=== PATIENT | female | born 1995 | race Caucasian/White ===

== ENCOUNTER 2018-08-20 02:11 | Observation (INO) ==
[2018-08-20] MEDS ORDERED: ONDANSETRON 4 MG/2 ML VIAL IV STA (02:50)
[2018-08-20] MEDS ORDERED: MORPHINE 4 MG/1 ML VIAL IV STA ×2 (02:50→04:18)
[2018-08-20 03:48] LABS: Albumin 4.7 G/DL (3.4-5.0); Bilirubin,Total 0.7 MG/DL (0.2-1.0); Calcium 9.2 MG/DL (8.5-10.1); Osmolality,Calculated 274.5 MOS/KG (273-304); Total Protein 8.2 G/DL (6.4-8.3)
[2018-08-20 04:16] LABS: Basophils % 0.4 % (0.0-0.8); Eosinophils # 0.1 10*3/uL (0.0-0.87); Eosinophils % 0.9 % (0.00-10.9); Hematocrit 35.4 VOL% (35.7-47.0); Hemoglobin 11.1 GM/DL (12.0-16.0); Immature Granulocytes % 0.2 %; Immature Granulocytes Absolute 0.02 #; Lymphocytes # 1.3 10*3/uL (1.4-4.0); Lymphocytes % 15.2 % (21.3-54.2); Mean Corpuscular HGB Conc 31.4 GM/DL (32-36); Mean Corpuscular Volume 85.7 FL (87-102); Mean Platelet Volume 10.9 FL (9.6-12.0); Monocytes % 11.5 % (1.7-12.7); Neutrophils % 71.8 % (38.7-73.9); Platelet Count 229 T/CUMM (130-400); Red Blood Count 4.13 MC/CUMM (3.8-5.5); Red Cell Distribution Width 17.5 % (9.3-17.3); White Blood Count 8.5 T/CUMM (4-12)
[2018-08-20] MEDS: FAMOTIDINE 20 MG/2 ML VIAL IV SCH ×2 (09:21→20:54)
[2018-08-20] MEDS: DEXTROSE 5% LACTATED RINGERS 1,000 ML IV SCH ×2 (09:21→15:00)
[2018-08-20] MEDS: MORPHINE 4 MG/1 ML VIAL IV PRN (15:30)
[2018-08-20] MEDS: ONDANSETRON 4 MG/2 ML VIAL IV PRN (17:21)
[2018-08-21] MEDS: DEXTROSE 5% LACTATED RINGERS 1,000 ML IV SCH ×3 (00:19→14:49)
[2018-08-21] MEDS: FAMOTIDINE 20 MG/2 ML VIAL IV SCH ×2 (08:52→20:44)
[2018-08-21] MEDS ORDERED: LIDOCAINE 1%/EPI INJ 20 ML VIAL ONE (13:06)
[2018-08-21] MEDS ORDERED: BUPIVACAINE MPF 0.25% /EPI 30 ML VIAL ONE (13:06)
[2018-08-21] MEDS ORDERED: ONDANSETRON 4 MG/2 ML VIAL ONE ×2 (14:39→15:17)
[2018-08-21] MEDS ORDERED: fentaNYL 100 MCG/2 ML VIAL ONE (14:39)
[2018-08-21] MEDS ORDERED: PROPOFOL 200 MG/20 ML VIAL IV ONE (14:39)
[2018-08-21] MEDS ORDERED: MIDAZOLAM 2 MG/2 ML VIAL ONE (14:39)
[2018-08-21] MEDS ORDERED: GLYCOPYRROLATE 0.4 MG/2 ML VIAL ONE (14:39)
[2018-08-21] MEDS ORDERED: ROCURONIUM 100 MG/10 ML VIAL IV ONE (14:40)
[2018-08-21] MEDS ORDERED: NEOSTIGMINE 10 MG/10 ML VIAL ONE (14:40)
[2018-08-21] MEDS ORDERED: ACETAMINOPHEN 1,000 MG/100 ML VIAL IV ONE (14:40)
[2018-08-21] MEDS ORDERED: MEPERIDINE 25 MG/1 ML VIAL ONE (15:02)
[2018-08-21] MEDS ORDERED: MEPERIDINE 25 MG/1 ML VIAL IV ONE (15:03)
[2018-08-21] MEDS ORDERED: HYDROmorphone 2 MG/1 ML VIAL IV PRN (15:14)
[2018-08-21] MEDS ORDERED: ONDANSETRON 4 MG/2 ML VIAL IV PRN (15:14)
[2018-08-21] MEDS ORDERED: HYDROmorphone 2 MG/1 ML VIAL ONE (15:17)
[2018-08-21] MEDS: MORPHINE 4 MG/1 ML VIAL IV PRN ×2 (17:58→20:44)
[2018-08-21] MEDS: ONDANSETRON 4 MG/2 ML VIAL IV PRN (20:43)
[2018-08-22] MEDS: DEXTROSE 5% LACTATED RINGERS 1,000 ML IV SCH (03:02)
[2018-08-22] MEDS: ONDANSETRON 4 MG/2 ML VIAL IV PRN (03:04)
[2018-08-22] MEDS: MORPHINE 4 MG/1 ML VIAL IV PRN (03:05)
[2018-08-22] MEDS: FAMOTIDINE 20 MG/2 ML VIAL IV SCH (08:27)
[2018-08-22 12:33] VITALS: BP 118/75
[2018-08-22] MEDS ORDERED: oxyCODONE/ACETAMINOPHEN 5-325 MG TABLET PO PRN (13:04)
== END 2018-08-22 14:50 | disposition home or self-care (01) ==
LOC: N.EDINP 02:11 → N.ED 02:11 → N.3E 05:43
PROVIDERS: ADMIT Surgery; ATTEND Surgery
PROC: LAPCHOL (2018-08-21 13:20)